=== PATIENT | male | born 1990 | race Caucasian/White ===

== ENCOUNTER 2018-07-28 21:03 | Emergency (ER) | payer OTHER ==
[~2018-07-28] VITALS: Ht 180.3 cm; Wt 77.3 kg
[2018-07-28] MEDS ORDERED: BACTRIM DS TAB1 EACH PO (22:19)
[2018-07-28 22:43] VITALS: BP 120/63
== END 2018-07-28 22:43 | disposition home or self-care (01) ==
LOC: ED 21:03
DX: S61.210A Laceration without foreign body of right index finger without damage to nail, initial encounter (principal); Z23 Encounter for immunization; Z98.890 Other specified postprocedural states; W26.0XXA Contact with knife, initial encounter; Y93.G1 Activity, food preparation and clean up; Y92.009 Unspecified place in unspecified non-institutional (private) residence as the place of occurrence of the external cause
CPT/HCPCS: 90715